=== PATIENT | male | born 1990 | race Caucasian/White ===

== ENCOUNTER 2018-05-12 16:32 | Emergency (ER) | payer SELFPAY ==
[2018-05-12] MEDS ORDERED: 0.9 % SODIUM CHLORIDE 1,000 ML BAG IV ONE (17:40)
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
[2018-05-12 17:51] LABS: BASO % 0.1 % (0-6); EOS % 0.7 % (0-6); HEMATOCRIT 48.9 % (42.0-52.0); HEMOGLOBIN 17.5 gm/dl (14.0-18.0); LYMPH % 22.5 % (16-45); MEAN CELL VOLUME 96.4 fl (81-97); MEAN CORPUSCULAR HEMOGLOBIN 34.5 pg (27-33); MEAN CORPUSCULAR HGB CONC 35.8 g/dl (32-36); MEAN PLATELET VOLUME 9.3 fl (7.4-10.4); MONO % 8.7 % (0-9); PLATELET COUNT 285 K/uL (130-400); RED BLOOD COUNT 5.07 M/uL (4.40-5.70); RED CELL DISTRIBUTION WIDTH 13.2 % (11.5-14.5); WHITE BLOOD COUNT W/O DIFF 13.9 K/uL (4.2-12.2)
[2018-05-12 18:03] LABS: BLOOD UREA NITROGEN 7 mg/dL (6-20); CREATININE 0.7 mg/dL (0.7-1.2); EST GLOMERULAR FILTRATION RATE > 60 mL/min; TOTAL PROTEIN 8.6 g/dL (6.6-8.7)
[2018-05-12 18:04] LABS: PARTIAL THROMBOPLASTIN TIME 26.1 SECONDS (24.5-39.1); PROTHROMBIN TIME (PATIENT) 10.5 SECONDS (9.5-12.1)
[2018-05-12 18:05] LABS: GLUCOSE,RANDOM 101 mg/dL (74-109)
[2018-05-12] MEDS ORDERED: ACETAMINOPHEN 1,000 MG/100 ML BTL IVPB ONE (18:06)
[2018-05-12 18:08] LABS: ALB/GLOB RATIO 1.4 (1.1-1.8); ALKALINE PHOSPHATASE 51 U/L (55-149); ALT/SGPT 20 U/L (<41); AST/SGOT 16 U/L (10.0-50.0)
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
== END 2018-05-12 20:17 | disposition home or self-care (01) ==
LOC: ER 16:32
DX: S49.92XA Unspecified injury of left shoulder and upper arm, initial encounter (principal); M54.6 Pain in thoracic spine; M54.5 Low back pain; M54.2 Cervicalgia; R68.84 Jaw pain; F17.210 Nicotine dependence, cigarettes, uncomplicated; V58.1XXA Passenger in pick-up truck or van injured in noncollision transport accident in nontraffic accident, initial encounter
CPT/HCPCS: 70450; 70486; 71250; 72125; 74176; 80053; 85025; 85610; 85730; 93005; 93010; 96374; 99284; J7030

== ENCOUNTER 2018-05-28 23:36 | Emergency (ER) | payer MEDICAID ==
[2018-05-28] MEDS ORDERED: 0.9 % SODIUM CHLORIDE 1000ML 1,000 ML IV SCH ×2 (23:45)
[2018-05-28] MEDS ORDERED: LORAZEPAM 2 MG/ML VIAL IV ONE (23:46)
[2018-05-28 23:49] LABS: BASO % 0.2 % (0-6); EOS % 2.1 % (0-6); GRAN % 59.7 % (47-80); HEMATOCRIT 50.7 % (42.0-52.0); HEMOGLOBIN 18.2 gm/dl (14.0-18.0); LYMPH % 28.3 % (16-45); MEAN CELL VOLUME 93.7 fl (81-97); MEAN CORPUSCULAR HEMOGLOBIN 33.6 pg (27-33); MEAN CORPUSCULAR HGB CONC 35.9 g/dl (32-36); MEAN PLATELET VOLUME 9.9 fl (7.4-10.4); MONO % 9.7 % (0-9); PLATELET COUNT 319 K/uL (130-400); RED BLOOD COUNT 5.41 M/uL (4.40-5.70); RED CELL DISTRIBUTION WIDTH 12.9 % (11.5-14.5); WHITE BLOOD COUNT W/O DIFF 16.2 K/uL (4.2-12.2)
--- NOTE | 2018-05-28 23:52 | Emergency Department Record ---
History of Present Illness - General Chief Complaint: Chest Pain Stated Complaint: USED COCAINE/HAVING CHEST PAIN Time Seen by Provider: 05/28/18 23:38 Source: Patient Mode of Arrival: Ambulatory Limitations: No limitations - History of Present Illness Initial Comments: 28 yo male presents to ED for evaluation of chest pain symptoms while using cocaine for the past 3 days. Patient reports that his symptoms began approximately 16 hours ago, last used approximately 12 hours ago. Patient reports "I thought cocaine would take my pain away". Patient denies health problems other than depression and anxiety. MD Complaint: Chest pain Onset/Timin -: Hour(s) Onset: Associated with drug use Pain Location: Substernal Pain Radiation: None Severity: Moderate Quality: Heaviness Consistency: Constant Improves With: Nothing Worsens With: Other (Cocaine use) Treatments Prior to Arrival: None - Related Data Allergies Allergy/AdvReac Type Severity Reaction Status Date / Time No Known Drug Allergies Allergy Verified 05/28/18 23:39 Review of Systems Constitutional: Denies: Chills, Fever, Malaise, Night sweats Eyes: Denies: Eye discharge, Eye pain ENT: Denies: Congestion, Ear pain, Epistaxis Respiratory: Denies: Cough, Dyspnea Cardiovascular: Reports: Chest pain. Denies: Dyspnea on exertion, Edema Endocrine: Denies: Fatigue, Heat or cold intolerance Gastrointestinal: Denies: Abdominal pain, Nausea, Vomiting Genitourinary: Denies: Incontinence, Retention Musculoskeletal: Denies: Arthralgia, Back pain Skin: Denies: Bruising, Change in color Neurological: Denies: Abnormal gait, Confusion, Headache, Seizure Psychiatric: Denies: Anxiety Hematological/Lymphatic: Denies: Anemia, Blood Clots Past Medical History - SOCIAL HISTORY Smoking Status: Heavy tobacco smoker (>10/day) - RESPIRATORY Hx Respiratory Disorders: Yes Hx Asthma: Yes - CARDIOVASCULAR Hx Cardio Disorders: No - NEURO Hx Neuro Disorders: No - GI Hx GI Disorders: No - Hx Genitourinary Disorders: No - ENDOCRINE Hx Endocrine Disorders: No - MUSCULOSKELETAL Hx Musculoskeletal Disorders: No - PSYCH Hx Psych Problems: Yes Hx Anxiety: Yes Hx Depression: Yes (bipolar) - HEMATOLOGY/ONCOLOGY Hx Hematology/Oncology Disorders: No Physical Exam - General General Appearance: Alert, Oriented x3, Cooperative, Moderate distress, Anxious Limitations: No limitations - Head Head exam: Atraumatic, Normocephalic, Normal inspection Head exam detail: negative: Abrasion, Contusion, Staley's sign, General tenderness, Hematoma, Laceration - Eye Eye exam: Normal appearance. negative: Conjunctival injection, Periorbital swelling, Periorbital tenderness, Scleral icterus - ENT Ear exam: negative: Auricular hematoma, Auricular trauma Nasal Exam: negative: Active bleeding, Discharge, Dried blood, Foreign body Mouth exam: negative: Drooling, Laceration, Muffled voice, Tongue elevation - Neck Neck exam: Normal inspection. negative: Meningismus, Tenderness - Respiratory Respiratory exam: Normal lung sounds bilaterally. negative: Rales, Respiratory distress, Rhonchi, Stridor - Cardiovascular Cardiovascular Exam: Normal rhythm, Normal heart sounds, Tachycardia - GI/Abdominal GI/Abdominal exam: Soft. negative: Rebound, Rigid, Tenderness - Rectal Rectal exam: Deferred - exam: Deferred - Extremities Extremities exam: Normal inspection. negative: Calf tenderness, Pedal edema, Tenderness - Back Back exam: Denies: CVA tenderness (R), CVA tenderness (L) - Neurological Neurological exam: Alert, Normal gait, Oriented X3 - Psychiatric Psychiatric exam: Anxious - Skin Skin exam: Normal color. negative: Abrasion Type of lesion: negative: abrasion Course Vital Signs 05/28/18 23:41 Temperature 97.4 F L Pulse Rate [ 128 H Medical Auditor ] Respiratory 32 H Rate Blood Pressure 145/112 [Left Arm] Pulse Ox 100 - Reevaluation(s) Reevaluation #1: 05/28/18 23:52 EKG: Sinus tachycardia 115 Normal axis, normal intervals No acute ST-T wave changes Reevaluation #2: 05/29/18 00:14 Laboratory studies were reviewed and are grossly unremarkable for an acute process: WBC 16.2 AG 18 Reevaluation #3: 05/29/18 00:48 Patient is back from CTA, reassessed and updated on all results. Patient is much calmer, resting comfortably at this time. Pulse improved to low 100's. Patient was updated on the plan of care for repeat Troponin at 4 hours with continued observation here in the ED. Reevaluation #4: 05/29/18 01:32 CTA Chest/Abdomen: No thoracic aortic dissection or aneurysm No PE No focal consolidation. Patient was updated on CTA result, resting comfortably at this time. Will continue to monitor pending repeat Troponin. Reevaluation #5: 05/29/18 04:07 Repeat Troponin appears negative for myocardial damage, and the patient appears stable for discharge at this time. Medical Decision Making - Lab Data Result diagrams: 05/28/18 23:40 05/28/18 23:40 Disposition Disposition: Discharge Clinical Impression: Cocaine use Chest pain Qualifiers: Chest pain type: unspecified Qualified Code(s): R07.9 - Chest pain, unspecified Disposition: Home, Self-Care Condition: (2) Stable Instructions: Chest Pain (ED) Additional Instructions: Return to ED if your symptoms worsen or if you have any concerns. Do not use cocaine as this can result in harm or . Follow-up with your family doctor in 3-5 days as directed. Forms: Patient Portal Access Time of Disposition: 00:51 Quality - Quality Measures Quality Measures: N/A - Blood Pressure Screening Does Patient Have Any of the Following: No Blood Pressure Classification: Hypertensive Reading Systolic Measurement: 124 Diastolic Measurement: 90 Screening for High Blood Pressure: < First Hypertensive BP, F/U Documented > [ G8950] First Hypertensive Follow-up Interventions: Referral to alternative/primary care provider.
[2018-05-29] LABS: BLOOD UREA NITROGEN 10 mg/dL (6-20); EST GLOMERULAR FILTRATION RATE > 60 mL/min
[2018-05-29 00:01] LABS: TOTAL PROTEIN 8.4 g/dL (6.6-8.7)
[2018-05-29 00:03] LABS: GLUCOSE,RANDOM 103 mg/dL (74-109)
[2018-05-29 00:06] LABS: ALB/GLOB RATIO 1.3 (1.1-1.8); ALBUMIN 4.7 g/dL (4.0-5.0); ALKALINE PHOSPHATASE 64 U/L (55-149); ALT/SGPT 38 U/L (<41); AST/SGOT 28 U/L (10.0-50.0)
--- NOTE | 2018-05-30 08:56 | CT ANGIOGRAM REPORT ---
EXAM: CT ANGIOGRAM OF THE CHEST, ABDOMEN AND PELVIS HISTORY: CHEST PAIN, DIZZINESS. TECHNIQUE: CT angiogram of the chest, abdomen and pelvis was performed with 100 ml Omnipaque 350 intravenous contrast. Additional 3D rendering performed on an independent workstation. Comparison: CT chest 05/12/18, CT abdomen and pelvis 05/12/18. FINDINGS: The central airways are patent. No significant pericardial fluid collection. No thoracic aortic aneurysm or dissection. No pulmonary arterial filling defects to suggest embolism. No focal pulmonary consolidation. No pleural effusion or pneumothorax. No mediastinal, hilar, or axillary lymphadenopathy. Cholelithiasis. Unremarkable appearance of the liver, spleen, adrenal glands, pancreas and kidneys. The abdominal aorta has normal course and caliber. No evidence of abdominal aortic aneurysm dissection or stenosis. Patent unremarkable appearance of the celiac arteries, superior mesenteric artery, and inferior mesenteric artery. No focal colonic thickening or inflammatory changes. The appendix is within normal limits. The stomach and small bowel are nondilated. No free air or free fluid. No acute osseous findings. IMPRESSION: 1. NO ACUTE FINDINGS IN THE CHEST, ABDOMEN OR PELVIS. NO EVIDENCE OF ACUTE THORACIC OR ABDOMINAL AORTIC PATHOLOGY. 2. CHOLELITHIASIS. 3. A PRELIMINARY REPORT WAS PROVIDED BY THE [facility]. JOB NUMBER: [id number] [facility]
== END 2018-05-29 04:32 | disposition home or self-care (01) ==
LOC: ER 23:36
DX: R07.2 Precordial pain (principal); F14.10 Cocaine abuse, uncomplicated; F17.210 Nicotine dependence, cigarettes, uncomplicated
CPT/HCPCS: 71275; 74175; 80053; 84484; 85025; 93005; 93010; 96361; 96374; 99284; J7030

== ENCOUNTER 2018-07-04 15:00 | Emergency (ER) | payer MEDICAID ==
[2018-07-04] MEDS ORDERED: KETOROLAC 30 MG/ML VIAL IVP ONE (15:22)
[2018-07-04] MEDS ORDERED: 0.9 % SODIUM CHLORIDE 1,000 ML BAG IV ONE (15:22)
[2018-07-04] MEDS ORDERED: LORAZEPAM 2 MG/ML VIAL IV ONE (15:22)
--- NOTE | 2018-07-04 15:24 | Emergency Department Record ---
History of Present Illness - General Chief Complaint: Chest Pain Stated Complaint: CHEST PAIN Time Seen by Provider: 07/04/18 15:09 Source: Patient Mode of Arrival: Ambulatory Limitations: No limitations - History of Present Illness Initial Comments: The patient is here due to L sided CP for the last 6 hour or so. He woke up with the symptoms and describes the pain as a sharp stabbing L anterior pain that is not radiating. Any palpation, twisting or deep breathing does increase the pain. The patient does feel mildly SOB at times but has had no sweating or nausea. He denies any hx of any cardiac risk factors other than tobacco use and has had no injuries to the chest wall. MD Complaint: Chest pain Onset/Timin -: Hour(s) Onset: Awoke with symptoms Pain Location: Left chest Quality: Aching Consistency: Constant Improves With: Nothing Worsens With: Nothing - Related Data Previous Rx's Medication Instructions Recorded Naproxen [Naprosyn] 500 mg PO BID #14 tablet. 07/04/18 Allergies Allergy/AdvReac Type Severity Reaction Status Date / Time No Known Drug Allergies Allergy Verified 07/04/18 15:06 Travel Screening - Travel/Exposure Within Last 30 Days Have you traveled within the last 30 days?: No Review of Systems Constitutional: Denies: Chills, Fever Eyes: Denies: Eye discharge ENT: Denies: Congestion Respiratory: Denies: Cough, Dyspnea Cardiovascular: Reports: Chest pain Endocrine: Denies: Fatigue Gastrointestinal: Denies: Nausea Genitourinary: Denies: Dysuria Musculoskeletal: Denies: Arthralgia Skin: Denies: Bruising Past Medical History - SOCIAL HISTORY Smoking Status: Current every day smoker Alcohol Use: None - RESPIRATORY Hx Respiratory Disorders: Yes Hx Asthma: Yes - CARDIOVASCULAR Hx Cardio Disorders: No - NEURO Hx Neuro Disorders: No - GI Hx GI Disorders: No - Hx Genitourinary Disorders: No - ENDOCRINE Hx Endocrine Disorders: No - MUSCULOSKELETAL Hx Musculoskeletal Disorders: No - PSYCH Hx Psych Problems: Yes Hx Anxiety: Yes Hx Depression: Yes (bipolar) - HEMATOLOGY/ONCOLOGY Hx Hematology/Oncology Disorders: No Family Medical History Any Significant Family History?: No Physical Exam - General General Appearance: Alert, Oriented x3, Cooperative, No acute distress - Head Head exam: Atraumatic, Normocephalic, Normal inspection - Eye Eye exam: Normal appearance, PERRL, EOMI - ENT Throat exam: Normal inspection. negative: Tonsillar erythema, Tonsillar exudate - Neck Neck exam: Normal inspection, Full ROM. negative: Tenderness - Respiratory Respiratory exam: Normal lung sounds bilaterally, Chest wall tenderness (The pain is 100!!! reproducible to palpation over the L anterior chest wall. The pain is also reproduced with sitting forward from a supine position and chest rotation.). negative: Accessory muscle use, Prolonged expiratory, Respiratory distress - Cardiovascular Cardiovascular Exam: Regular rate, Normal rhythm, Normal heart sounds. negative : Diastolic murmur, Systolic murmur - GI/Abdominal GI/Abdominal exam: Soft, Normal bowel sounds. negative: Tenderness - Extremities Extremities exam: Normal inspection, Full ROM, Normal capillary refill. negative: Tenderness Image of Full Body: 1 - Area of pain and reproducible tenderness. - Neurological Neurological exam: Alert, Normal gait. negative: Abnormal gait, Motor sensory deficit - Psychiatric Psychiatric exam: Anxious Course Vital Signs 07/04/18 15:01 Temperature 97.4 F L Pulse Rate 85 Respiratory 24 Rate Blood Pressure 151/97 Pulse Ox 100 - Reevaluation(s) Reevaluation #1: The patient is doing a LOT better at this time and his pain is almost gone. He is resting comfortably and is much less anxious. On exam the pain is still very reproducible to palpation. I did explain to him that his workup is all normal and we will discharge the patient on Naprosyn for pain. 07/04/18 16:32 Medical Decision Making - Data Complexity MDM Data: Labs Ordered and/or Reviewed, X-Ray Ordered and/or Reviewed, EKG Ordered and/or Reviewed - Lab Data Result diagrams: 07/04/18 15:10 07/04/18 15:10 - EKG Data -: EKG Interpreted by Me EKG: No Acute Changes, Normal EKG - Radiology Data Radiology results: Report reviewed (CXR: Neg) Disposition Disposition: Discharge Clinical Impression: Chest wall pain Disposition: Home, Self-Care Condition: (2) Stable Instructions: Chest Wall Pain (ED) Additional Instructions: Please rest and take Naprosyn for pain. Please see your family doctor for recheck later this week. Return to the ER for any worsening symptoms. Prescriptions: Naproxen [Naprosyn] 500 mg PO BID #14 tablet.dr Forms: Patient Portal Access Time of Disposition: 16:35 Quality - Quality Measures Quality Measures: N/A - Blood Pressure Screening View Details: Yes Does Patient Have Any of the Following: No Blood Pressure Classification: Hypertensive Reading Systolic Measurement: 151 Diastolic Measurement: 97 Screening for High Blood Pressure: < First Hypertensive BP, F/U Documented > [ G8950] First Hypertensive Follow-up Interventions: Referral to alternative/primary care provider.
[2018-07-04 15:38] LABS: HEMOGLOBIN 17.7 gm/dl (14.0-18.0); MEAN CORPUSCULAR HEMOGLOBIN 33.3 pg (27-33); MEAN CORPUSCULAR HGB CONC 34.7 g/dl (32-36); MEAN PLATELET VOLUME 9.6 fl (7.4-10.4); PLATELET COUNT 311 K/uL (130-400); RED BLOOD COUNT 5.31 M/uL (4.40-5.70); RED CELL DISTRIBUTION WIDTH 13.2 % (11.5-14.5); WHITE BLOOD COUNT W/O DIFF 13.5 K/uL (4.2-12.2)
[2018-07-04 15:48] LABS: BLOOD UREA NITROGEN 9 mg/dL (6-20); CREATININE 0.7 mg/dL (0.7-1.2); EST GLOMERULAR FILTRATION RATE > 60 mL/min
[2018-07-04 15:49] LABS: TOTAL PROTEIN 8.6 g/dL (6.6-8.7)
[2018-07-04 15:51] LABS: GLUCOSE,RANDOM 105 mg/dL (74-109)
[2018-07-04 15:53] LABS: ALB/GLOB RATIO 1.2 (1.1-1.8); ALBUMIN 4.6 g/dL (4.0-5.0); ALKALINE PHOSPHATASE 71 U/L (40-129); ALT/SGPT 24 U/L (<41); AST/SGOT 17 U/L (10.0-50.0); CREATINE PHOSPHOKINASE 44 U/L (39-308)
[2018-07-04 15:56] LABS: CKMB < 1.0 ng/mL (<6.73)
[2018-07-04 16:11] LABS: AMPHETAMINE SCREEN URINE NOT DETECTED; BARBITURATE SCREEN URINE NOT DETECTED; BENZODIAZEPINE SCREEN URINE NOT DETECTED; COCAINE SCREEN URINE NOT DETECTED; METHADONE SCREEN URINE NOT DETECTED; METHAMPHETAMINE SCREEN NOT DETECTED; OPIATE SCREEN URINE NOT DETECTED; OXYCODONE SCREEN URINE NOT DETECTED; PHENCYCLIDINE SCREEN URINE NOT DETECTED; PROPOXYPHENE SCREEN URINE NOT DETECTED; THC SCREEN URINE DETECTED; TRICYCLIC ANTIDEPRESSANT SCRN NOT DETECTED
--- NOTE | 2018-07-06 09:30 | RADIOLOGY REPORT ---
EXAM: CHEST, TWO VIEWS HISTORY: DIFFICULTY BREATHING. ELEVATED WHITE BLOOD CELL COUNT. TECHNIQUE: PA and lateral upright views of the chest were obtained. Comparison: Previous chest CT dated 05/12/18. FINDINGS: The heart, mediastinum, and pulmonary vasculature are normal. There are low lung volumes. There are no visible acute infiltrates or effusions. There is no pneumothorax. The bones appear intact. Bilateral nipple piercing' s are present. IMPRESSION: 1. LOW LUNG VOLUMES. 2. NO ACUTE INTRATHORACIC PATHOLOGY IDENTIFIED. JOB [facility]BER: [id number] [facility]
== END 2018-07-04 16:40 | disposition home or self-care (01) ==
LOC: ER 15:00
DX: R07.89 Other chest pain (principal); R06.02 Shortness of breath; R20.0 Anesthesia of skin; F17.210 Nicotine dependence, cigarettes, uncomplicated
CPT/HCPCS: 99284 ×2; 96374; 96375; 82550; 82553; 80053; 80305; 84484; 85379; 85027; 71046; 93005; 93010; J1885; J2060; J7030

== ENCOUNTER 2019-04-16 15:48 | Emergency (ER) | payer MEDICAID ==
[2019-04-16] MEDS ORDERED: ASPIRIN 81 MG CHEWABLE TABLET PO ONE (16:23)
[2019-04-16] MEDS: NITROGLYCERIN 0.4MG SL TABLET #25 BTL SL ONE ×2 (16:40→16:47)
[2019-04-16 16:41] LABS: HEMATOCRIT 49.2 % (42.0-52.0); HEMOGLOBIN 16.5 gm/dl (14.0-18.0); MEAN CELL VOLUME 95.5 fl (81-97); MEAN CORPUSCULAR HGB CONC 33.5 g/dl (32-36); MEAN PLATELET VOLUME 10.7 fl (7.4-10.4); PLATELET COUNT 254 K/uL (130-400); RED BLOOD COUNT 5.15 M/uL (4.40-5.70); RED CELL DISTRIBUTION WIDTH 13.4 % (11.5-14.5); WHITE BLOOD COUNT W/O DIFF 9.5 K/uL (4.2-12.2)
[2019-04-16 16:56] LABS: BLOOD UREA NITROGEN 6 mg/dL (6-20); EST GLOMERULAR FILTRATION RATE > 60 mL/min
[2019-04-16 16:57] LABS: INFLUENZA A NEGATIVE (NEGATIVE); INFLUENZA B NEGATIVE (NEGATIVE); TOTAL PROTEIN 8.4 g/dL (6.6-8.7)
[2019-04-16 16:59] LABS: GLUCOSE,RANDOM 125 mg/dL (74-109)
[2019-04-16 17:01] LABS: ALT/SGPT 38 U/L (<41)
[2019-04-16 17:02] LABS: ALB/GLOB RATIO 1.4 (1.1-1.8); ALBUMIN 4.9 g/dL (4.0-5.0); ALKALINE PHOSPHATASE 53 U/L (40-129); AST/SGOT 23 U/L (10.0-50.0); CREATINE PHOSPHOKINASE 62 U/L (39-308)
[2019-04-16 17:04] LABS: CKMB < 1.0 ng/mL (<6.73)
[2019-04-16 17:35] LABS: URINE APPEARANCE CLEAR; URINE BILIRUBIN NEGATIVE (NEGATIVE); URINE BLOOD TRACE-I (NEGATIVE); URINE COLOR YELLOW; URINE GLUCOSE (UA) NEGATIVE (NEGATIVE); URINE KETONE NEGATIVE (NEGATIVE); URINE LEUKOCYTE ESTERASE NEGATIVE (NEGATIVE); URINE NITRITE NEGATIVE (NEGATIVE); URINE PROTEIN TRACE (NEGATIVE); URINE UROBILINOGEN 0.2 E.U./dL (0.20 - 1.00)
[2019-04-16 17:39] LABS: AMPHETAMINE SCREEN URINE NOT DETECTED; BARBITURATE SCREEN URINE NOT DETECTED; BENZODIAZEPINE SCREEN URINE NOT DETECTED; COCAINE SCREEN URINE NOT DETECTED; METHADONE SCREEN URINE NOT DETECTED; METHAMPHETAMINE SCREEN NOT DETECTED; OPIATE SCREEN URINE NOT DETECTED; OXYCODONE SCREEN URINE NOT DETECTED; PHENCYCLIDINE SCREEN URINE NOT DETECTED; PROPOXYPHENE SCREEN URINE NOT DETECTED; THC SCREEN URINE DETECTED; TRICYCLIC ANTIDEPRESSANT SCRN NOT DETECTED
[2019-04-16 17:44] LABS: URINE EPITHELIAL CELLS NONE SEEN (FEW); URINE RBC 0 - 2 (NONE SEEN); URINE WBC NONE SEEN (0-2/hpf)
--- NOTE | 2019-04-16 18:01 | RADIOLOGY REPORT ---
EXAMINATION: Two View Chest Radiographs EXAM DATE: 04/16/2019 6:00 PM TECHNIQUE: Frontal and lateral views INDICATION: cp COMPARISON: Chest x-ray 07/04/2018 ENCOUNTER: Not applicable FINDINGS: The heart, mediastinum, and pulmonary vasculature are normal. No lung consolidation or pleural effu sions are present. IMPRESSION: No acute cardiopulmonary disease is present. Dictated by: Toby Oliva MD on 04/16/2019 5:59 PM. .
--- NOTE | 2019-04-16 19:11 | Emergency Department Record ---
History of Present Illness - General Chief Complaint: Chest Pain Stated Complaint: CHEST PAIN Time Seen by Provider: 04/16/19 16:19 Source: Patient Mode of Arrival: Ambulatory Limitations: No limitations - History of Present Illness Initial Comments: pt has had cp that is sharp since this am. he has had cold sweats. he has a cough MD Complaint: Chest pain Onset/Timin -: Days(s) Severity scale (1-10): 6 Quality: Ripping, Sharp Consistency: Intermittent Worsens With: Nothing - Related Data Home Medications Medication Instructions Recorded Confirmed Last Taken No Home Med [NO HOME MEDS] 04/16/19 04/16/19 Unknown Allergies Allergy/AdvReac Type Severity Reaction Status Date / Time No Known Drug Allergies Allergy Verified 04/16/19 15:55 Travel Screening - Travel/Exposure Within Last 30 Days Have you traveled within the last 30 days?: No Review of Systems Reviewed: No additional complaints except as noted below Constitutional: Reports: As per HPI, Chills, Fever. Denies: Malaise, Night sweats, Weakness, Weight change Eyes: Reports: As per HPI. Denies: Eye discharge, Eye pain, Photophobia, Vision change ENT: Reports: As per HPI. Denies: Congestion, Dental pain, Ear pain, Epistaxis, Hearing loss, Throat pain Respiratory: Reports: As per HPI. Denies: Cough, Dyspnea, Hemoptysis, Stridor, Wheezes Cardiovascular: Reports: As per HPI, Chest pain. Denies: Arrhythmia, Dyspnea on exertion, Edema, Murmurs, Orthopnea, Palpitations, Paroxysmal nocturnal dyspnea, Rheumatic Fever, Syncope Endocrine: Reports: As per HPI. Denies: Fatigue, Heat or cold intolerance, Polydipsia, Polyuria Gastrointestinal: Reports: As per HPI. Denies: Abdominal pain, Constipation, Diarrhea, Hematemesis, Hematochezia, Melena, Nausea, Vomiting Genitourinary: Reports: As per HPI. Denies: Dysuria, Frequency, Hematuria, Incontinence, Retention, Testicular pain, Testicular mass, Urgency Musculoskeletal: Reports: As per HPI. Denies: Arthralgia, Back pain, Gout, Meg nt swelling, Myalgia, Neck pain Skin: Reports: As per HPI. Denies: Bruising, Change in color, Change in hair/nails, Lesions, Pruritus, Rash Neurological: Reports: As per HPI. Denies: Abnormal gait, Confusion, Headache, Numbness, Paresthesias, Seizure, Tingling, Tremors, Vertigo, Weakness Psychiatric: Reports: As per HPI. Denies: Anxiety, Auditory hallucinations, Depression, Homicidal thoughts, Suicidal thoughts, Visual hallucinations Hematological/Lymphatic: Reports: As per HPI. Denies: Anemia, Blood Clots, Easy bleeding, Easy bruising, Swollen glands Past Medical History - SOCIAL HISTORY Smoking Status: Current every day smoker Alcohol Use: None Drug Use: Occasional Drug Use Detail:: Marijuana - RESPIRATORY Hx Respiratory Disorders: Yes Hx Asthma: Yes - CARDIOVASCULAR Hx Cardio Disorders: No - NEURO Hx Neuro Disorders: No - GI Hx GI Disorders: No - Hx Genitourinary Disorders: No - ENDOCRINE Hx Endocrine Disorders: No - MUSCULOSKELETAL Hx Musculoskeletal Disorders: No - PSYCH Hx Psych Problems: Yes Hx Anxiety: Yes Hx Depression: Yes (bipolar) - HEMATOLOGY/ONCOLOGY Hx Hematology/Oncology Disorders: No Family Medical History Any Significant Family History?: Yes Hx Cancer: Grandparents Hx Diabetes: Grandparents Physical Exam - General General Appearance: Alert, Oriented x3, Cooperative, Mild distress - Head Head exam: Normal inspection - Eye Eye exam: Normal appearance, PERRL, EOMI Pupils: Normal accommodation - ENT ENT exam: Normal exam, Mucous membranes moist, Normal external ear exam, Normal orophraynx Ear exam: Normal external inspection. negative: External canal tenderness Nasal Exam: Normal inspection. negative: Discharge, Sinus tenderness Mouth exam: Normal external inspection, Tongue normal Teeth exam: Normal inspection. negative: Dental caries Throat exam: Normal inspection. negative: Tonsillar erythema, Tonsillar exudate - Neck Neck exam: Normal inspection, Full ROM. negative: Tenderness - Respiratory Respiratory exam: Normal lung sounds bilaterally. negative: Respiratory distr ess - Cardiovascular Cardiovascular Exam: Regular rate, Normal rhythm, Normal heart sounds - GI/Abdominal GI/Abdominal exam: Soft, Normal bowel sounds. negative: Tenderness - Rectal Rectal exam: Deferred - exam: Deferred - Extremities Extremities exam: Normal inspection, Full ROM, Normal capillary refill. negative: Tenderness - Back Back exam: Reports: Normal inspection, Full ROM. Denies: Muscle spasm, Rash noted, Tenderness - Neurological Neurological exam: Alert, CN II-XII intact, Normal gait, Oriented X3 - Psychiatric Psychiatric exam: Normal affect, Normal mood - Skin Skin exam: Dry, Intact, Normal color, Warm Course Vital Signs 12/16/19 12/16/19 12/16/19 15:52 16:41 16:48 Temperature 100.2 F H Pulse Rate 143 H Pulse Rate [ 110 H 120 H Tight Rope Walker ] Respiratory 20 22 24 Rate Blood Pressure 150/103 Blood Pressure 127/83 125/91 [Right Arm] Pulse Ox 98 99 98 04/16/19 04/16/19 16:51 18:51 Temperature Pulse Rate Pulse Rate [ 110 H 97 H Tight Rope Walker ] Respiratory 26 H 20 Rate Blood Pressure Blood Pressure 122/81 115/75 [Right Arm] Pulse Ox 97 94 L - Reevaluation(s) Reevaluation #1: 04/16/19 19:14 pts vitals improved. cp improved. unlikely to be cardiac as it has been going on for hours and is sharp. ekg sinus tach Medical Decision Making - Lab Data Result diagrams: 04/16/19 15:58 04/16/19 15:58 Lab Results 04/16/19 04/16/19 04/16/19 Range/Units 15:58 15:58 15:58 WBC 9.5 (4.2-12.2) K/uL RBC 5.15 (4.40-5.70) M/uL Hgb 16.5 (14.0-18.0) gm/dl Hct 49.2 (42.0-52.0) % MCV 95.5 (81-97) fl MCH 32.0 (27-33) pg MCHC 33.5 (32-36) g/dl RDW 13.4 (11.5-14.5) % Plt Count 254 (130-400) K/uL MPV 10.7 H (7.4-10.4) fl Neutrophils % 76.0 (47-80) % Eosinophils % Not Reportable Basophils % Not Reportable Absolute Neutrophils Not Reportable Lymphocytes 12.0 L (16-45) % Monocytes 12.0 H (0-9) % D-Dimer 0.36 (0-0.59) mg/L FEU Sodium 139 (136-145) mmol/L Potassium 3.6 (3.4-4.5) mmol/L Chloride 102 (98-107) mmol/L Carbon Dioxide 20.0 L (22-29) mmol/L Anion Gap 17.0 H (7-16) BUN 6 (6-20) mg/dL Creatinine 1.0 (0.7-1.2) mg/dL Estimated GFR > 60 mL/min Random Glucose 125 H (74-109) mg/dL Calcium 10.2 H (8.6-10.0) mg/dL Total Bilirubin 0.40 (0.2-1.0) mg/dL AST 23 (10.0-50.0) U/L ALT 38 (<41) U/L Alkaline Phosphatase 53 (40-129) U/L Creatine Kinase 62 (39-308) U/L CK-MB (CK-2) < 1.0 (<6.73) ng/mL Troponin T < 0.010 (0-0.010) ng/mL Total Protein 8.4 (6.6-8.7) g/dL Albumin 4.9 (4.0-5.0) g/dL Globulin 3.5 (1.4-4.8) gm/dL Albumin/Globulin Ratio 1.4 (1.1-1.8) Urine Color Urine Appearance Urine pH (5.0-8.0) Ur Specific [place] (1.002-1.030) Urine Protein (NEGATIVE) Urine Glucose (UA) (NEGATIVE) Urine Ketones (NEGATIVE) Urine Blood (NEGATIVE) Urine Nitrite (NEGATIVE) Urine Bilirubin (NEGATIVE) Urine Urobilinogen (0.20 - 1.00) E.U./dL Ur Leukocyte Esterase (NEGATIVE) Urine RBC (NONE SEEN) Urine WBC (0-2/hpf) Ur Epithelial Cells (FEW) Urine Opiates Screen Ur Oxycodone Screen Urine Methadone Screen Ur Propoxyphene Screen Ur Barbituates Screen Ur Tricyclics Screen Ur Phencyclidine Scrn Ur Amphetamine Screen U Methamphetamines Scrn U Benzodiazepines Scrn Urine Cocaine Screen Urine Cannabis Screen Influenza Type A Ag (NEGATIVE) Influenza Type B Ag (NEGATIVE) 04/16/19 04/16/19 04/16/19 Range/Units 15:58 17:16 17:16 WBC (4.2-12.2) K/uL RBC (4.40-5.70) M/uL Hgb (14.0-18.0) gm/dl Hct (42.0-52.0) % MCV (81-97) fl MCH (27-33) pg MCHC (32-36) g/dl RDW (11.5-14.5) % Plt Count (130-400) K/uL MPV (7.4-10.4) fl Neutrophils % (47-80) % Eosinophils % Basophils % Absolute Neutrophils Lymphocytes (16-45) % Monocytes (0-9) % D-Dimer (0-0.59) mg/L FEU Sodium (136-145) mmol/L Potassium (3.4-4.5) mmol/L Chloride (98-107) mmol/L Carbon Dioxide (22-29) mmol/L Anion Gap (7-16) BUN (6-20) mg/dL Creatinine (0.7-1.2) mg/dL Estimated GFR mL/min Random Glucose (74-109) mg/dL Calcium (8.6-10.0) mg/dL Total Bilirubin (0.2-1.0) mg/dL AST (10.0-50.0) U/L ALT (<41) U/L Alkaline Phosphatase (40-129) U/L Creatine Kinase (39-308) U/L CK-MB (CK-2) (<6.73) ng/mL Troponin T (0-0.010) ng/mL Total Protein (6.6-8.7) g/dL Albumin (4.0-5.0) g/dL Globulin (1.4-4.8) gm/dL Albumin/Globulin Ratio (1.1-1.8) Urine Color Yellow Urine Appearance Clear Urine pH 8.0 (5.0-8.0) Ur Specific [place] 1.015 (1.002-1.030) Urine Protein Trace H (NEGATIVE) Urine Glucose (UA) Negative (NEGATIVE) Urine Ketones Negative (NEGATIVE) Urine Blood Trace-i (NEGATIVE) Urine Nitrite Negative (NEGATIVE) Urine Bilirubin Negative (NEGATIVE) Urine Urobilinogen 0.2 (0.20 - 1.00) E.U./dL Ur Leukocyte Esterase Negative (NEGATIVE) Urine RBC 0 - 2 (NONE SEEN) Urine WBC None seen (0-2/hpf) Ur Epithelial Cells None seen (FEW) Urine Opiates Screen Not detected Ur Oxycodone Screen Not detected Urine Methadone Screen Not detected Ur Propoxyphene Screen Not detected Ur Barbituates Screen Not detected Ur Tricyclics Screen Not detected Ur Phencyclidine Scrn Not detected Ur Amphetamine Screen Not detected U Methamphetamines Scrn Not detected U Benzodiazepines Scrn Not detected Urine Cocaine Screen Not detected Urine Cannabis Screen Detected Influenza Type A Ag Negative (NEGATIVE) Influenza Type B Ag Negative (NEGATIVE) Disposition Disposition: Discharge Clinical Impression: Chest pain Qualifiers: Chest pain type: unspecified Qualified Code(s): R07.9 - Chest pain, unspecified Disposition: Home, Self-Care Condition: (1) Good Instructions: Chest Pain (ED) Additional Instructions: follow up with family doctor.return sooner if worse. rest Quality - Quality Measures Quality Measures: N/A - Blood Pressure Screening Does Patient Have Any of the Following: No Blood Pressure Classification: Hypertensive Reading Systolic Measurement: 150 Diastolic Measurement: 103 Screening for High Blood Pressure: < First Hypertensive BP, F/U Documented > [G8950] First Hypertensive Follow-up Interventions: Follow-up with rescreen GT 1 day and LT 4 weeks.
== END 2019-04-16 19:27 | disposition home or self-care (01) ==
LOC: ER 15:48
DX: R25.2 Cramp and spasm (principal); F17.210 Nicotine dependence, cigarettes, uncomplicated; R07.9 Chest pain, unspecified
CPT/HCPCS: 71046; 80053; 80305; 81001; 82550; 82553; 84484; 85027; 85379; 87400; 93005; 93010; 99284